=== PATIENT | female | born 1955 | race Caucasian/White ===

== ENCOUNTER 2021-03-02 15:55 | Emergency (ER) | payer OTHER, SELFPAY ==
[2021-03-02 16:12] VITALS: BP 125/68; PULSE 90; RESP 16; TEMP 36.6; O2SAT 94
--- NOTE | 2021-03-02 16:33 | ED.SKABFB ---
HPI - Skin/Abscess/Foreign Bdy General Chief complaint: Skin/Abscess/Foreign Body Stated complaint: Boil under Right Arm Time Seen by Provider: 03/02/21 16:33 Source: patient, family and RN notes reviewed Mode of arrival: ambulatory Limitations: no limitations History of Present Illness HPI narrative: 65 year-old patient arrives ambulatory with with c/o Abscess in right axilla. patient states that two weeks ago she waxed her armpits. The next day she work up with a quarter size lump that was swollen and warm to touch.. States she had yellow thick drainage from area. Patient states she has washed with soap and water daily.. She states drainage is now clear only when she presses area. Denies fever, chills, or any other issues. States this happens 8 times per year in same spot. MD complaint: abscess/boil Related Data Home Medications Medication Instructions Recorded Confirmed diazepam 2 mg PO QID PRN 03/02/21 03/02/21 lansoprazole 30 mg PO DAILY 03/02/21 03/02/21 latanoprost 1 drp EACH EYE HS 03/02/21 03/02/21 methocarbamol 500 mg PO TID PRN 03/02/21 03/02/21 morphine 30 mg PO TID 03/02/21 03/02/21 omeprazole [Prilosec] 40 mg PO DAILY 03/02/21 03/02/21 propranolol 10 mg PO BID 03/02/21 03/02/21 spironolactone 25 mg PO DAILY 03/02/21 03/02/21 tamsulosin 0.4 mg PO HS 03/02/21 03/02/21 Allergies Allergy/AdvReac Type Severity Reaction Status Date / Time amoxicillin AdvReac Intermediate Nausea and Verified 03/02/21 16:43 Vomiting Sulfa (Sulfonamide AdvReac Intermediate Nausea and Verified 03/02/21 16:43 Antibiotics) Vomiting Review of Systems Review of Systems: CONSTITUTIONAL: Denies body aches, fever, chills, or sweats. EYES: Denies visual changes, redness, or discharge. ENT: Denies rhinorrhea, congestion, sore throat, or otalgia. CARDIOVASCULAR: Denies chest pain, palpitations, or edema. RESPIRATORY: Denies cough or dyspnea. GASTROINTESTINAL: Denies abdominal pain, nausea, vomiting, or diarrhea. GENITOURINARY: Denies dysuria or hematuria. SKIN: Denies rash or itching. + Boil under arm pit MUSCULOSKELETAL: Denies back pain, joint pain, or myalgia. NEUROLOGIC: Denies headache, numbness, tingling, or weakness. PSYCH: Denies depression or anxiety. All systems reviewed & are unremarkable except as noted in HPI and below PMFSH Comments At time of signature, I have reviewed and agree with nursing past medical, surgical, social and family history unless otherwise noted. Please see nursing chart for further information. There is no relevant family history pertinent to the presenting complaint Exam Narrative: GENERAL: Well-appearing, well-nourished, and in no acute distress. HEAD: Normocephalic, atraumatic. EYES: EOMI. No redness or drainage. Conjunctivae normal. ENT: Mucous membranes pink and moist. Nares clear. No rhinorrhea. TMs normal bilaterally. Throat normal. Uvula midline. NECK: Normal AROM. Supple. No lymphadenopathy. CHEST: No respiratory distress. Clear to auscultation. HEART: Regular rate and rhythm. No murmur appreciated. Normal peripheral pulses. ABDOMEN: Soft, nontender, nondistended, normal active bowel sounds. MUSCULOSKELETAL: No bony tenderness. EXTREMITIES: Normal range of motion. No edema. SKIN: Warm, dry, no rash. Capillary refill normal. Normal skin turgor. Right axilla pea sized firm area, non-fluctuant, no erythema, no drainage. NEURO: No focal deficits. Alert and oriented x3. Gait steady. PSYCH: Normal affect. No signs of depression or anxiety. Course Vital Signs Vital signs: Vital Signs Temperature 36.6 C 03/02/21 16:12 Pulse Rate 90 03/02/21 16:12 Respiratory Rate 16 03/02/21 16:12 Blood Pressure 125/68 03/02/21 16:12 Pulse Oximetry 94 03/02/21 16:12 Temperature 36.6 C 03/02/21 16:12 Pulse Rate 90 03/02/21 16:12 Respiratory Rate 16 03/02/21 16:12 Blood Pressure 125/68 03/02/21 16:12 Pulse Oximetry 94 03/02/21 16:12 Re
== END 2021-03-02 17:03 | disposition home or self-care (01) ==
PROVIDERS: Emergency Provider Nurse Practitioner Family; PCP Internal Medicine
DX: L02.411 Cutaneous abscess of right axilla (principal); M41.9 Scoliosis, unspecified; Z86.19 Personal history of other infectious and parasitic diseases
CPT/HCPCS: 99211; G0463

== ENCOUNTER 2024-04-20 11:50 | Outpatient (CLI) | payer OTHER, SELFPAY ==
--- NOTE | ~2024-04-20 | MR_ITS ---
MR breast BI wo/w con 04/21/2024 08:07 [facility] INDICATION: Left nipple discharge. Left breast mass. TECHNIQUE: MRI of the breasts perform using standard protocol pre-and post IV contrast with the follo wing sequences: Axial T2 STIR, axial T1, axial vibrant T1 with fat suppression precontrast and multip hasic postcontrast. 13 cc MultiHance administered intravenously. COMPARISON: Ultrasound and mammogram dated 02/12/2024 and mammogram dated 11/13/2021 FINDINGS: There are no abnormalities on the precontrast sequences. There is moderate nodular backgrou nd parenchymal enhancement. No enhancing lesions following contrast administration. No areas of enh ancement meeting threshold criteria on CAD analysis. No evidence of signal abnormalities in the axil flory or internal mammary node distributions. LEFT BREAST: No signal abnormalities on precontrast sequences. There is moderate nodular background parenchymal enhancement. No enhancing lesions following contrast administration. No areas of enhan cement meeting threshold criteria on CAD analysis. No evidence of signal abnormalities in the axill adrien or internal mammary node distributions.] IMPRESSION: 1: Moderate nodular bilateral background enhancement limits evaluation for subtle mass. No discrete s uspicious masses or lymphadenopathy are identified to suggest malignancy. Recommend second look bilat eral complete breast ultrasound. BI-RADS CATEGORY 0 - INCOMPLETE STUDY, NEED ADDITIONAL IMAGING EVALUATION. Reviewed, dictated and finalized at location B. [facility] IMPRESSION: 1: Moderate nodular bilateral background enhancement limits evaluation for subt le mass. No discrete suspicious masses or lymphadenopathy are identified to sug gest malignancy. Recommend second look bilateral complete breast ultrasound. BI-RADS CATEGORY 0 - INCOMPLETE STUDY, NEED ADDITIONAL IMAGING EVALUATION.
== END 2024-04-20 11:51 | disposition home or self-care (01) ==
PROVIDERS: PCP Internal Medicine; Visit Provider Internal Medicine Medical Oncology
DX: N60.19 Diffuse cystic mastopathy of unspecified breast (principal); R92.30 Dense breasts, unspecified; N64.52 Nipple discharge; N63.20 Unspecified lump in the left breast, unspecified quadrant
CPT/HCPCS: 77049; A9577; C8908

== ENCOUNTER 2024-05-15 08:58 | Outpatient (CLI) | payer OTHER, SELFPAY ==
--- NOTE | ~2024-05-15 | US_ITS ---
US breast BI complete 05/15/2024 09:56 Indication: Fibrocystic breast disease Procedure: High-resolution complete bilateral breast ultrasound including all 4 quadrants in the suba reolar locations Comparison: Comparison to multiple prior studies sequentially, with oldest reviewed study dated 11/13. Findings: Right breast: In the subareolar location of the right breast there is an oval hypoechoic mass with pa rallel orientation, circumscribed margins, no posterior features and no internal vascularity measurin g 7 x 3 x 4 mm. No other masses are identified. Left breast: There are multiple cysts of the left breast. At 3:00, 6 cm from the nipple there is an o jag parallel oriented circumscribed hypoechoic mass measuring 6 mm. There are subtle posterior acoust ic enhancement. No internal vascularity. At 4:00 near the nipple there is antiparallel hypoechoic mas s with slightly irregular margins measuring 5 mm maximum dimension Impression: 1: Irregular shaped antiparallel configuration. Mass of the left breast near the nipple measuring 5 m m. Ultrasound-guided left breast biopsy recommended. 2: Oval hypoechoic left breast mass at 3:00, 6 cm from the nipple measuring 6 mm, likely benign. Six- month follow-up left breast ultrasound recommended. BI-RADS CATEGORY 4-SUSPICIOUS ABNORMALITY Reviewed, dictated and finalized at location B. [employer] C[employer] Impression: 1: Irregular shaped antiparallel configuration. Mass of the left breast near th e nipple measuring 5 mm. Ultrasound-guided left breast biopsy recommended. 2: Oval hypoechoic left breast mass at 3:00, 6 cm from the nipple measuring 6 m m, likely benign. Six-month follow-up left breast ultrasound recommended. BI-RADS CATEGORY 4-SUSPICIOUS ABNORMALITY
== END 2024-05-15 08:59 | disposition home or self-care (01) ==
PROVIDERS: PCP Internal Medicine; Visit Provider Internal Medicine Medical Oncology
DX: R92.8 Other abnormal and inconclusive findings on diagnostic imaging of breast (principal); N60.11 Diffuse cystic mastopathy of right breast
CPT/HCPCS: 76641

== ENCOUNTER 2024-09-07 07:22 | Outpatient (CLI) | payer OTHER, SELFPAY ==
--- NOTE | ~2024-09-07 | MMUS_ITS ---
EXAMINATION: MM post biopsy diagnostic LT, US breast biopsy LT w image EXAMINATION: US GUIDED NEEDLE BIOPSY WITH VACUUM ASSISTANCE DATE: 09/07/2024 10:17 CDT INDICATION: Left breast mass seen on prior examination. Ultrasound-guided core biopsy is requested t o evaluate for malignancy. BREAST PARENCHYMAL COMPOSITION: Dense: The breasts are heterogeneously dense, which may obscure small masses TECHNIQUE AND FINDINGS: The risks and potential benefits of the procedure were discussed with the patient, and written inform ed consent was obtained. After sterile preparation of the left breast, 1% lidocaine was utilized for local anesthesia. 1% lidocaine with epinephrine was used for deep anesthesia. A 10G vacuum-assisted biopsy gun needle was advanced through to the outer edge of the region of inter est from a inferior approach utilizing sonographic guidance. A total of three tissue core samples we re obtained through the lesion. The lesion of interest resolved following biopsy. No residual mass is identified. An Inrad tissue marker clip was then placed at the biopsy site. Hemostasis was achieved. The patient tolerated procedure well and there was no evidence of immediate complication. The patien t was given verbal instructions partly is from the department. Left breast mammograms to document ti ssue marker clip placement. The tissue samples were submitted to surgical pathology for histologic an alysis. IMPRESSION: 1. Successful ultrasound-guided vacuum-assisted biopsy of left breast mass with complete resolution of the mass postprocedure with post procedure mammogram for marker placement. Please refer to patholo gy report for histologic analysis. Reviewed, dictated and finalized at location B. IMPRESSION: 1. Successful ultrasound-guided vacuum-assisted biopsy of left breast mass wit h complete resolution of the mass postprocedure with post procedure mammogram f or marker placement. Please refer to pathology report for histologic analysis.
--- OUTSIDE RECORDS SUMMARY | 2024-09-07 07:29 | XMS_ITS | Clinical Summary ---
[facility] Address [address] [facility] Attn: Epic Prelude ADT TIMMY CARSON [id number] Care Team Providers Care Photoengraver Apprentice Name Role Phone Ervin Sherman MD Primary Care Provider [phone] Allergies Active Allergy Reactions Criticality Noted Date Comments Adhesive Tape Other (See Comments) 02/16/2009 Medications multivitamin (DAILY-FERCHO) Oral Tab Take 1 Tab by mouth daily. Active CALCIUM CARBONATE/VITAMIN D3 (CALCIUM 600 + D PO) Take by mouth. Activ e VITAMIN E PO Take 400 Int'l Units by mouth. Active cholecalciferol, vitamin D3, 5,000 unitIndications:Fi brocystic breast changes,Other malaise and fatigue Take by mouth 2 times daily. Active LACTOBACILLUS RHAMNOSUS GG (PROBIOTIC ORAL)Indications:F ibrocystic breast changes Take by mouth daily. Active EVENING PRIMROSE OIL ORAL Take by mouth. Activ e diazepam (VALIUM) 5 mg tablet Take 5 mg by mouth every 6 hours as needed for Anxiety (at bedtime). PT TAKES 2MG TID Active diphenhydrAMINE (BENADRYL) 25 mg tablet Take 25 mg by mouth every 6 hours as needed for Allergies. Active lysine 500 mg tablet Take 500 mg by mouth daily. Active Aspirin, Buffered 81 mg Tablet Take by mouth. Ac tive propranolol (INDERAL) 20 mg tabletIndications: half tabs Take 20 mg by mouth daily . Active latanoprost (XALATAN) 0.005 % solution Administer 1 Drop in both eyes daily at bedtime. 7.5 mL 4 08/29/2018 11:51 AM CDT 8 Active tamsulosin (FLOMAX) 0.4 mg capsule Take 0.4 mg by mouth daily. Active spironolactone (ALDACTONE) 25 mg tablet Take 25 mg by mouth daily. prn Active magnesium oxide 250 mg Tablet Take by mouth. A ctive morphine (MS IR) 30 mg tabletIndications: Other intervertebral disc degeneration, lumbosacral region Take 0.5-1 Tablets (15-30 mg) by mouth every 6 hours as needed for pain. Maximum 2.5 tablets daily. 75 Tablet 11/02/2019 11:53 AM CDT 0 Active methocarbamoL (ROBAXIN) 500 mg tablet Take 500 mg by mouth 4 times daily. 1/2 AT BREAKFAST, LUNCH AND 1 1/2 AT 9 PM Active loperamide HCl (ANTI-DIARRHEA ORAL) Take by mouth. Activ e esomeprazole (NexIUM) 20 mg Capsule, Delayed Release(E.C.) Take 20 mg by mouth daily before breakfast. Active Prolia 60 mg/mL Syringe 3 Active pantoprazole (PROTONIX) 40 mg Tablet, Delayed Release (E.C.) Take 1 Tablet by mouth daily. 4 Active prochlorperazine maleate (COMPAZINE) 10 mg tablet Take 1 Tablet by mouth 3 times daily. 4 Active furosemide (LASIX) 10 mg/mL Solution Take by mouth two times daily, 7 hours apart. Prn Active Active Problems Patient Care Coordination No te Formatting of this note migh t be different from the original. Primary Care: Ervin Sherman MD [place]: [place] [id number] [place] [address] Other: Problem Noted Date Diagnosed Date Tobacco use 03/10/2015 Dysphagia 08/13/2013 Overview (08/13/2013): Both solids and liquids; to have upper endoscopy 4-13 Anxiety disorder in conditions classified elsewh ere 08/13/2013 Arthritis 08/13/2013 Migraine 08/13/2013 Fibrocystic breast changes 12/29/2009 Overview (12/29/2009): Diffusely painful breasts Multiple biopsies,all benign Encounters Date Type Department Care Team Description 08/13/2024 Orders Only [facility]-[address] [phone] Jo-Ann Rodriguez MD Abnormal mammogram of left breast (Primary Dx); Abnormal ultrasound of breast; Mass of left breast, unspecified quadrant 08/12/2024 External Device Data [facility] ABSTRACTION Provider, Abstract 08/01/2024 External Device Data [facility] Provider, Abstract 07/31/2024 External Device Data [facility] Provider, Abstract 07/29/2024 External Device Data [facility] Provider, Abstract 07/29/2024 External Device Data [facility] Provider, Abstract 07/15/2024 External Device Data [facility]STRACTION Provider, Abstract 07/09/2024 Abstract [facility]-[address] [phone] Jo-Ann Rodriguez MD 07/02/2024 Abstract [facility]-[address] [id number] Jo-Ann Rodriguez MD 06/18/2024 External Device Data [facility] ABSTRACTION Provider, Abstract 06/16/2024 Orders Only [address] [id number] Jo-Ann Rodriguez MD Abnormal ultrasound of breast (Primary Dx); Abnormal mammogram of left breast 06/15/2024 Abstract [facility]-[address] [phone] Jo-Ann Rodriguez MD from Last 3 Months Family History Medical History Relation Name Comments Cancer Father throat cancer Breast Cancer Neg Hx Ovarian Cancer Neg Hx Uterine Cancer Neg Hx Relation Name Status Comments Father Social History Tobacco Use Types Packs/Day Years Used Date Smoking Tobacco: Every Day Smokeless Tobacco: Never Tobacco Cessation:Ready to Q uit: Not Asked; Counseling Given: Not Answered Alcohol Use Standard Drinks/Week Comments Not Asked 0 (1 standard drink = 0.6 oz pur e alcohol) Comments No Sex and Gender Information Value Date Recorded Sex Assigned at Not on file Legal Sex Female 4:40 AM [employer]AL WORK[employer] Gender Identity Not on file Sexual Orientation Not on file Last Filed Vital Signs Vital Sign Reading Time Taken Comments Blood Pressure 120/62 03/03/2024 11:05 AM CDT Pulse 86 03/03/2024 11:05 AM CDT Temperature 36.3 C (97.3 F) 03/03/2024 11:05 AM CDT Respiratory Rate 16 03/03/2024 11:05 AM CDT Oxygen Saturation 96% 03/03/2024 11:05 AM CDT Inhaled Oxygen Concentration - - Weight 62.6 kg (138 lb) 03/03/2024 11:05 AM CDT Height 152.4 cm (5') 03/03/2024 11:05 AM CDT Body Mass Index 26.95 03/03/2024 11:05 AM CDT Plan of Treatment Health Maintenance Due Date Last Done Comments Pre-Diabetes and Diabetes Screening 1955 DTAP/TDAP/TD VACCINES (1 - Tdap) 1974 PNEUMOCOCCAL VACCINE 50+ YEA RS (1 of 2 - PCV) 1974 COLORECTAL SCREENING 2000 Colorectal Cancer Screening 2000 FIT-DNA Q 3 years 2000 FIT/FOBT Q 1 year 2000 Flex Sig/CT Colonography Q 5 years 2000 ZOSTER VACCINE (1 of 2) 2005 COVID-19 Vaccine (2023-2 5 season) 2024 10/21/2020, 09/30/2020 Medicare Advantage (PR) Preventative Visit/Annual Wellness Visit 05/27/2024 04/03/2024, 05/28/2002 BREAST CANCER SCREENING 02/11/2025 02/12/20 24, 12/28/2022, 12/28/2022, Additional history exists RSV VACCINE (60+ or ) (1 - 1-dose 75+ series) 2030 OSTEOPOROSIS SCREENING Completed 4, 02/12/2024, 02/12/2024, Additional history exists INFLUENZA VACCINE Completed 04/03/2024 Procedures Procedure Name Priority Date/Time Associated Diagnosis Comments XR DEXA BONE DENSITY AXIAL 1 OR MORE SITES Routine 02/12/2024 Osteoporosis, unspecified osteoporosis type, unspecified pathological fracture presence HM MAMMOGRAPHY Routine 12/28/2022 11:09 AM CDT from Last 3 Months or Most Recently Relevant to Health Maintenance Results * XR DEXA BONE DENSITY AXIAL 1 OR MORE SITES (02/12/2024) T-SCORE FEMUR CLASS A [facility] T-SCORE FEMUR (LEFT) EXTERNAL RADIOLOGY T-SCORE FEMUR (RIGHT) EXTERNAL RADIOLOGY T-SCORE FEMUR NECK EXTERNAL RADIOLOGY T-SCORE FEMORAL NECK (LEFT) EXTERNAL RADIOLOGY T-SCORE FEMORAL NECK (RIGHT) EXTERNAL RADIOLOGY T-SCORE HEEL EXTERNA L RADIOLOGY T-SCORE HEEL (LEFT) EXTERNAL RADIOLOGY T-SCORE HEEL (RIGHT) EXTERNAL RADIOLOGY T-SCORE HIP EXTERNAL RADIOLOGY T-SCORE HIP (LEFT) EXTERNAL RADIOLOGY T-SCORE HIP (RIGHT) EXTERNAL RADIOLOGY T-SCORE WRIST CLASS A [facility] T-SCORE WRIST (LEFT) EXTERNAL RADIOLOGY T-SCORE WRIST (RIGHT) EXTERNAL RADIOLOGY T-SCORE SPINE CLASS A [facility] Anatomical Region Laterality Modality Other us Jo-Ann Rodriguez MD DIAGNOSTIC IMAGING ORDERABLES Edited Result - Final * MAMMOGRAPHY (12/28/2022 11:09 AM CDT) us Joanie Schwartz MD HEALTH MAINTENANCE Final Result [facility] #[id number] [address] [place] [address], from Last 3 Months or Most Recently Relevant to Health Maintenance Insurance [facility] [place] Address: [address] [address] RX MEDIMPACT Member Subscriber Plan / Payer (Ef fective for All Dates) Name:Khadijah Taylor Coby Relation to Subscriber:Self Name:Khadijah Taylor Coby Payer ID:Not on file Group ID:[id number] Type:RX Medicare Part D Address: [facility] Member Subscriber Plan / Payer (Ef fective 2008-Present) Name:ClaudiaKhadijah Relation to Subscriber:Self Name:Claudia Khadijah Tenorio Payer ID:[id number] (NAIC) Type:[employer] Address: [facility] [address] [place] [id number] Care Teams Photoengraver Apprentice Relationship Specialty [place] [address] [place] [address] PCP - General Internal Medicine 07/06/10
--- OUTSIDE RECORDS SUMMARY | 2024-09-07 07:29 | XMS_ITS | Referral Summary ---
Author Organization [facility] Address [address] [place] [address] Care Team Providers Care Art Glass Setter Name Role Phone Ervin Sherman MD Primary Care Provider [phone] Encounters Date Type Department Care Team Description 07/07/2024 6:01 PM DANCE CHOREOGRAPHER - 07/07/2024 11:59 PM DANCE CHOREOGRAPHER Hospital Encounter [facility] [address] [place] [address] Abnormal mammography Discharge Disposition: Discharge to home or self care from Last 3 Months Allergies Active Allergy Reactions Criticality Noted Date Comments Adhesive Tape-Silicones Immunizations Immunization Administration Dates Next Due Pfizer SARS-CoV-2 Monovalent Vaccination (12+ Yrs) PURPLE 10/21/2020,09/30/2020 Social History Tobacco Use Types Packs/Day Years Used Date Smoking Tobacco: Every Day Cigarettes Smokeless Tobacco: Never Alcohol Use Standard Drinks/Week Comments No 0 (1 standard drink = 0.6 oz pur e alcohol) Comments No Sex and Gender Information Value Date Recorded Sex Assigned at Not on file Legal Sex Female 1:59 AM DANCE CHOREOGRAPHER Gender Identity Not on file Sexual Orientation Not on file Last Filed Vital Signs Vital Sign Reading Time Taken Comments Blood Pressure 120/77 01/17/2018 8:47 PM CDT Pulse 109 01/17/2018 8:47 PM CDT Temperature 37.1 C (98.8 F) 01/17/2018 8:47 PM CDT Respiratory Rate 20 01/17/2018 8:47 PM CDT Oxygen Saturation 98% 01/17/2018 8:47 PM CDT Inhaled Oxygen Concentration - - Weight 60.3 kg (133 lb) 01/17/2018 8:47 PM CDT Height 152.4 cm (5') 02/12/2024 1:10 PM CDT Body Mass Index 25.97 01/17/2018 8:47 PM CDT Plan of Treatment Not on file Procedures Procedure Name Priority Date/Time Associated Diagnosis Comments BREAST IMAGING MG DIAGNOSTIC OUTSIDE CONSULT Routine 07/07/2024 6:01 PM DANCE CHOREOGRAPHER Abnormal mammography DIAGNOSTIC MAMMOGRAM BILATERAL W PHILLIP Schedule Routine, Read Routine (OP Routine) 02/12/2024 1:30 PM CDT Fibrocystic change of breast, unspecified laterality Nipple discharge DEXA AXIAL SKELETON BONE DENSITY 1 OR MORE SITES Schedule Routine, Read Routine (OP Routine) 02/12/2024 1:00 PM CDT Osteoporosis, postmenopausal from Last 3 Months or Most Recently Relevant to Health Maintenance Results * Breast Imaging DX Outside Consult (07/07/2024 6:01 PM DANCE CHOREOGRAPHER) Anatomical Region Laterality Modality Breast N/A Mammography 07/08/2024 11:1 2 AM DANCE CHOREOGRAPHER Impressions 07/08/2024 2:21 PM DANCE CHOREOGRAPHER 1. No MRI evidence of malignancy or explanation for the patient's left nipple discharge. 2. Subsequent facility ultrasound reportedly showed masses in the left breast at the 4:00 retroareolar location as well as at the 3 o'clock position 6 cm from the nipple. Further evaluation with repeat left breast ultrasound is recommended. OVERALL FINAL ASSESSMENT: BI-RADS Category 0: Incomplete - Need Additional Imaging Evaluation. RECOMMENDATION: Additional imaging - ultrasound evaluation of the left breast. NOTE: The findings, conclusions and recommendations within this report do not replace the initial findings, conclusions and recommendations made at the facility where the study was performed based upon the imaging and clinical condition at that time. Review of the prior report and correlation with the clinical history are necessary. The provided images may or may not represent the modoc source data set and thus may contain changes which may lower the sensitivity of the second opinion interpretation. Dictated by: John Ho MD The radiology attending physician has personally reviewed this study, and had reviewed and/or edited this written report and agrees with it. Electronically signed by: Nataliya Ortega M.D. Narrative 07/08/2024 2:21 PM DANCE CHOREOGRAPHER EXAMINATION: REVIEW AND INTERPRETATION OF OUTSIDE IMAGING FACILITY PERFORMING OUTSIDE IMAGING: [facility]. EXAM(S) REVIEWED: 1. BILATERAL BREAST MRI WITH AND WITHOUT INTRAVENOUS CONTRAST, 04/20/2024 DATE OF INTERPRETATION: 07/08/2024 HISTORY: 69-year-old woman with clear left nipple discharge. She has a history of fibrocystic breast disease. COMPARISON: Mammogram 01/17/2023, mammogram 02/12/2024 BREAST PARENCHYMAL COMPOSITION: There are scattered areas of fibroglandular density. FINDINGS: Mildly limited evaluation of the MRI due to difference in protocols. There is scattered fibroglandular tissue and mild background parenchymal enhancement. There are postsurgical changes in both breasts. There is no suspicious enhancing mass or non-mass enhancement noted within either breast. Imaged axilla shows no evidence of lymphadenopathy. Reportedly ultrasound was recommended and showed a mass in the left breast at the 4 o'clock position near the nipple for which ultrasound-guided biopsy is recommended as well as an oval hypoechoic mass in the left breast for which six-month follow-up was recommended. Procedure Note Nataliya Ortega MD - 07/08/2024 EXAMINATION: REVIEW AND INTERPRETATION OF OUTSIDE IMAGING FACILITY PERFORMING OUTSIDE IMAGING: [facility]. EXAM(S) REVIEWED: 1. BILATERAL BREAST MRI WITH AND WITHOUT INTRAVENOUS CONTRAST, 04/20/2024 DATE OF INTERPRETATION: 07/08/2024 HISTORY: 69-year-old woman with clear left nipple discharge. She has a history of fibrocystic breast disease. COMPARISON: Mammogram 01/17/2023, mammogram 02/12/2024 BREAST PARENCHYMAL COMPOSITION: There are scattered areas of fibroglandular density. FINDINGS: Mildly limited evaluation of the MRI due to difference in protocols. There is scattered fibroglandular tissue and mild background parenchymal enhancement. There are postsurgical changes in both breasts. There is no suspicious enhancing mass or non-mass enhancement noted within either breast. Imaged axilla shows no evidence of lymphadenopathy. Reportedly ultrasound was recommended and showed a mass in the left breast at the 4 o'clock position near the nipple for which ultrasound-guided biopsy is recommended as well as an oval hypoechoic mass in the left breast for which six-month follow-up was recommended. IMPRESSION: 1. No MRI evidence of malignancy or explanation for the patient's left nipple discharge. 2. Subsequent facility ultrasound reportedly showed masses in the left breast at the 4:00 retroareolar location as well as at the 3 o'clock position 6 cm from the nipple. Further evaluation with repeat left breast ultrasound is recommended. OVERALL FINAL ASSESSMENT: BI-RADS Category 0: Incomplete - Need Additional Imaging Evaluation. RECOMMENDATION: Additional imaging - ultrasound evaluation of the left breast. NOTE: The findings, conclusions and recommendations within this report do not replace the initial findings, conclusions and recommendations made at the facility where the study was performed based upon the imaging and clinical condition at that time. Review of the prior report and correlation with the clinical history are necessary. The provided images may or may not represent the modoc source data set and thus may contain changes which may lower the sensitivity of the second opinion interpretation. Dictated by: John Ho MD The radiology attending physician has personally reviewed this study, and had reviewed and/or edited this written report and agrees with it. Electronically signed by: Nataliya Ortega M.D. Roman Rodriguez MD IMG MAMMO PROCEDURES Final Re sult * (ABNORMAL) Diagnostic Mammogram Bilateral W Phillip (02/12/2024 1:30 PM CDT) Anatomical Region Laterality Modality Breast Bilateral Mammography 02/12/2024 2:09 PM CDT Impressions 02/12/2024 2:09 PM CDT 1. No findings are identified on mammogram or sonogram to account for patient's clear left nipple discharge. Clear nipple discharge is considered pathologic, and further evaluation with breast MRI is recommended. 2. No new suspicious findings identified in either breast on mammogram. BI-RADS: 0 - Additional imaging evaluation is necessary. I discussed the findings and recommendations with the patient at time of the examination. Electronically signed by: SHAYNA Enrique 02/12/2024 2:09 PM CDT EXAMINATION: DIAGNOSTIC MAMMOGRAM BILATERAL W PHILLIP, US BREAST LEFT LIMITED ORDERING HEALTHCARE PROVIDER: ROMAN RODRIGUEZ HISTORY: 68-year-old woman comes in today for evaluation of clear left nipple discharge, and screening of the right breast. COMPARISON: 12/28/2022, 11/13/2021, 11/10/2020, 05/13/2019. TECHNIQUE: CC and MLO views of both breasts were obtained with digital technique using digital breast tomosynthesis with C view. Computer aided detection was utilized. Targeted sonographic examination of the left breast was performed real-time grayscale images and color Doppler. FINDINGS: MAMMOGRAPHIC FINDINGS: There are scattered areas of fibroglandular density. Stable benign postoperative changes are identified in both breasts. There are also multiple benign round and oval low-density masses with circumscribed margins in both breasts. These have not suspiciously changed in greater than 2 years, consistent with benignity. There are no new suspicious findings in either breast on mammogram. SONOGRAPHIC FINDINGS: Targeted sonographic examination of the subareolar left breast demonstrates multiple benign cysts, but no suspicious solid masses or abnormally dilated ducts are identified. us Roman Rodriguez MD IMG MAMMO PROCEDURES Final Re sult * Dexa Axial Skeleton Bone Density 1 or 2 Site (02/12/2024 1:00 PM CDT) Anatomical Region Laterality Modality Body N/A Other 02/12/2024 4:47 PM CDT Narrative 02/12/2024 4:48 PM CDT EXAM DESCRIPTION: DEXA AXIAL SKELETON BONE DENSITY 1 OR MORE SITES REASON FOR STUDY: 68 y/o year old F with given history of: Screening Postmenopausal Shop And Alteration Tailor/Model: BCNX SL (S/N [id number]) CLINICAL INFORMATION: Current height: 60 inches Maximum height: 16 inches Weight: 133 pounds Risk factors: Postmenopausal, smoking history, rheumatoid arthritis, secondary osteoporosis, cancer COMPARISON: 12/26/2021 FINDINGS: AP LUMBAR SPINE L1-L4: Total BMD is 1.012 g/cm2 T-score is -0.3 This is increased in comparison to prior exam which is statistically significant. LEFT HIP: Total BMD is 0.792 g/cm2 T-score is -1.2 This is increased in comparison to prior exam which is statistically significant. Femoral neck BMD is 0.568 g/cm2 T-score is -2.5 FRAX: FRAX not reported due to T-scores of hip, femoral neck and/or spine being at or below -2.5 (Osteoporosis). IMPRESSION: Osteoporosis. REFERENCE: Bone mineral density: T-Score: Normal (T-score above or = -1.0) Low bone mass (T-score between -1.0 and -2.5) replaces the previously used term osteopenia Osteoporosis (T-score = or below -2.5) Z-Score: Within the expected range for age (Z-score above -2.0) Below the expected range for age (Z-score is -2.0 or below) Please see below follow up recommendations. Medical evaluation for secondary causes of low bone mineral density may be appropriate. FRAX is a World Health Organization validated fracture risk assessment tool that calculates a person's 10 year probability of a major osteoporosis related fracture and hip fracture. According to the National Osteoporosis Foundation guidelines, postmenopausal women and men age 50 or older with low bone mass and a 10 year probability of a major osteoporosis related fracture = or greater than 20% or a 10 year probability of a hip fracture = or greater than 3% should be considered for pharmacological treatment for the prevention of osteoporosis. For further information, including treatment recommendations, please refer to the 2019 ISCD Official Positions (http://www.iscd.org) and the NOF's Clinician's Guide to Prevention and Treatment of Osteoporosis (http://www.nof.org/professionals/clinical-guidelines) THIS IS AN ELECTRONICALLY VERIFIED FINAL REPORT 02/12/2024 4:48 PM - Electronically signed by Justin Dailey M.D. MF: [email or web address] Report ID: [id number] Reading Location: [id number] Procedure Note Justin Dailey MD - 02/12/2024 EXAM DESCRIPTION: DEXA AXIAL SKELETON BONE DENSITY 1 OR MORE SITES REASON FOR STUDY: 68 y/o year old F with given history of: Screening Postmenopausal Shop And Alteration Tailor/Model: Wally (S/N [id number]) CLINICAL INFORMATION: Current height: 60 inches Maximum height: 16 inches Weight: 133 pounds Risk factors: Postmenopausal, smoking history, rheumatoid arthritis, secondary osteoporosis, cancer COMPARISON: 12/26/2021 FINDINGS: AP LUMBAR SPINE L1-L4: Total BMD is 1.012 g/cm2 T-score is -0.3 This is increased in comparison to prior exam which is statistically significant. LEFT HIP: Total BMD is 0.792 g/cm2 T-score is -1.2 This is increased in comparison to prior exam which is statistically significant. Femoral neck BMD is 0.568 g/cm2 T-score is -2.5 FRAX: FRAX not reported due to T-scores of hip, femoral neck and/or spine beingat or below -2.5 (Osteoporosis). IMPRESSION: Osteoporosis. REFERENCE: Bone mineral density: T-Score: Normal (T-score above or = -1.0) Low bone mass (T-score between -1.0 and -2.5) replaces thepreviously used term osteopenia Osteoporosis (T-score = or below -2.5) Z-Score: Within the expected range for age (Z-score above -2.0) Below the expected range for age (Z-score is -2.0 or below) Please see below follow up recommendations. Medical evaluation forsecondary causes of low bone mineral density may be appropriate. FRAX is a World Health Organization validated fracture risk assessmenttool that calculates a person's 10 year probability of a major osteoporosisrelated fracture and hip fracture. According to the National OsteoporosisFoundation guidelines, postmenopausal women and men age 50 or older with low bonemass and a 10 year probability of a major osteoporosis related fracture = or greater than 20% or a 10 year probability of a hip fracture = or greaterthan 3% should be considered for pharmacological treatment for the preventionof osteoporosis. For further information, including treatment recommendations, please referto the 2019 ISCD Official Positions (http://www.iscd.org) and the NOF's Clinician's Guide to Prevention and Treatment of Osteoporosis (http://www.nof.org/professionals/clinical-guidelines) THIS IS AN ELECTRONICALLY VERIFIED FINAL REPORT 02/12/2024 4:48 PM - Electronically signed by Justin Dailey M.D. MF: [email or web address] Report ID: [id number] Reading Location: [id number] Roman Rodriguez MD IMG DXA PROCEDURES Final Resu lt from Last 3 Months or Most Recently Relevant to Health Maintenance Additional Health Concerns Infection Onset Date Last Indicated MDR gram neg/ESBL Comment:Backloaded March 15, 2011 01/26/2011 01/26/2011 Insurance HEALTHCARE HEALTHCARE HEALTHCARE Care Teams Art Glass Setter Relationship Specialty [place] [address] [address] PCP - General 01/31/12
--- OUTSIDE RECORDS SUMMARY | 2024-09-07 07:30 | XMS_ITS | Clinical Summary ---
Author Organization [facility] Address [address] [place] [address] Care Team Providers Care Nylon Operator Name Role Phone Ervin Sherman MD Primary Care Provider [phone] Source Comments [facility],non-owned Affiliates and Associated Physician Practices is amultiple site organization consisting of ambulatory clinics and hospital sitesin [place], [place], [place] and [place]. This disclosure is being madepursuant to the Care Everywhere program and may not contain all information available regarding this patient. Last updated 18.[facility] Allergies Active Allergy Reactions Criticality Noted Date Comments Adhesive Sensitivity 06/16/2009 Promethazine 01/06/2009 Reglan 01/06/2009 Vomiting and diarrhea Medications * Be aware that medications may not be up to date on this document. Alwaysverify current medications with the patient. DIAZEPAM PO Take by mouth. Active travoprost (TRAVATAN) 0.004 % ophthalmic solution Instill 1 Drop into both eyes. Active Other Fentonal patch Need dosage Active MSIR PO Take by mouth. Active doxepin (SINEQUAN) 25 MG capsule Take by mouth. Active dicyclomine (BENTYL) 10 MG capsule Take by mouth. Active CALCIUM + D PO Take by mouth. Active MULTI-VITAMIN PO Take by mouth. Active VITAMIN E PO Take by mouth. Active primidone (MYSOLINE) 50 MG tablet Take by mouth. 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 Gender Identity Not on file Sexual Orientation Not on file Last Filed Vital Signs Vital Sign Reading Time Taken Comments Blood Pressure 120/72 06/16/2009 1:11 PM STEM CLEANING MACHINE FEEDER Pulse - - Temperature - - Respiratory Rate - - Oxygen Saturation - - Inhaled Oxygen Concentration - - Weight 60.8 kg (134 lb) 06/16/2009 1:11 PM STEM CLEANING MACHINE FEEDER Height 152.4 cm (5') 06/16/2009 1:11 PM STEM CLEANING MACHINE FEEDER Body Mass Index 26.17 06/16/2009 1:11 PM STEM CLEANING MACHINE FEEDER Plan of Treatment Health Maintenance Due Date Last Done Comments COLOGUARD (AGES 45-75) - COLON CA SCREENING 1955 COLON MONITORING 1955 COLONOSCOPY - COLON CA SCREENING 1955 CT COLONOGRAPHY - COLON CA SCREENING 1955 Colorectal Cancer Screening 1955 FIT - COLON CA SCREENING 1955 FLEX SIG - COLON CA SCREENING 1955 LIPID TESTING 1955 HEPATITIS C SCREENING 03/04/1973 PNEUMOCOCCAL VACCINE 50+ (1 of 1 - PCV) 2005 ZOSTER VACCINE (1 of 2) 2005 DTAP/TDAP/TD VACCINES (2 - Td or Tdap) 05/27/2005 05/27/1995 MAMMOGRAM 02/22/2019 02/22/2017, 01/26, 12/31/2014, Additional history exists COVID-19 VACCINE ( - season) 2024 DEPRESSION SCREENING 05/27/2024 INFLUENZA VACCINE (Season Ended) 2025 Respiratory Syncytial Virus (RSV) Vaccine Pt: or over 60 yrs (1 - 1-dose 75+ series) 2030 BONE DENSITY TESTING Completed 02/21/2009 HEPATITIS B VACCINE Aged Out No longe r eligible based on patient's age to complete this topic HIB VACCINE Aged Out No longer eligi ble based on patient's age to complete this topic HPV VACCINE Aged Out No longer eligi ble based on patient's age to complete this topic MENINGOCOCCAL (Group B) VACCINE SHARED DECISION-MAKING Aged Out No longer eligible based on patient's age to complete this topic MENINGOCOCCAL GROUPS A/C/Y/W VACCINE Aged Out No longer eligible based on patient's age to complete this topic Procedures Procedure Name Priority Date/Time Associated Diagnosis Comments MAMMO BILAT DIAGNOSTIC Routine 02/22/2017 1:16 PM CDT Lump DEXA BONE DENSITY 2 SITES Routine 02/21/2009 11:34 AM CDT Special Screening for Osteoporosis from Last 3 Months or Most Recently Relevant to Health Maintenance Results * Mammogram Diagnostic Digital Bilateral (G0204) (02/22/2017 1:16 PM CDT) Anatomical Region Laterality Modality Bilateral Mammography 02/22/2017 1:20 PM CDT Narrative 02/22/2017 2:19 PM CDT FULL-FIELD DIGITAL MAMMOGRAPHY BILATERAL DIAGNOSTIC - WITH CAD CORRELATION AND 3-D TOMOSYNTHESIS DATE: 02/22/2017 12:47 PM PREVIOUS EXAM DATE: 02/20/2016, 12/31/2014, 12/18/2013 INDICATIONS: Left breast tenderness, left breast palpable lump TECHNIQUE: Bilateral breast CC and MLO views with 3-D Tomosynthesis,, these images were interpreted with the aid of CAD. TISSUE DENSITY: There are scattered areas of fibroglandular density FINDINGS: There is an ovoid 11 mm mass at approximately the 9:00 position of the right breast, approximately 4 cm from the nipple which has smooth, well-defined margins and has the mammographic appearance of a cyst. Ultrasound of this region was recommended and was performed at this institution this afternoon. In addition, at approximately the 8:00 to 9:00 position of the left breast, approximately 2 cm from the nipple, there is an ovoid well-defined smoothly marginated 11 mm mass which has the mammographic appearance of a cyst. Ultrasound of this region was recommended and was performed at this institution this afternoon. Bilateral breast ultrasound findings: Ultrasonographic assessment of the right breast, 9:00 position, approximately 3 to 4 cm from the nipple, reveals a 1.4 cm simple cyst. In the 12:00 position of the left breast, approximately 1 cm from the nipple, there is a 7 mm cyst which contains thick internal proteinaceous debris. Also in the 12:00 position of the left breast, approximately 1 cm from the nipple, there is a 1.6 cm gently lobulated cyst with single septation. These are considered benign findings. ASSESSMENT: BI-RADS 2: Benign finding(s) RECOMMENDATION: Continued annual screening mammography The above findings should be correlated with physical examination. A relatively nonspecific study should not preclude additional evaluation if suspicious findings are present clinically. An [employer] [place] [employer] certified facility. [facility] utilize [employer] as a reminder system to notify patients of their next recommended mammogram. Jo-Ann Rodriguez MD MAMMO ORDERABLES Final Result * DEXA BONE DENSITY 2 SITES (02/21/2009 11:34 AM CDT) Anatomical Region Laterality Modality Mammography 02/21/2009 1:42 PM CDT Impressions 02/21/2009 3:10 PM CDT The composite T-scores range from 0.2 in the lumbar spine to -1.5 in the hips. Using the lower value, patient meets WHO criteria for osteopenia and has an increased fracture risk as compared to the control population. WORLD HEALTH ORGANIZATION DEFINITIONS OSTEOPENIA = -1 to -2.5 SD BELOW T SCORE. OSTEOPOROSIS = Less than -2.5 SD BELOW T SCORE Narrative 02/21/2009 3:10 PM CDT BONE MINERAL DENSITY STUDY INDICATION: Ovarian failure. Post menopausal. Osteoporosis screening. FINDINGS: The average bone mineral density from L1 to L4 is 1.158 g/cm2. The T-score is -0.2 and the Z-score is 0.8. The average bone mineral density of the total hips is 0.822 g/cm2. The T-score is -1.5 and the Z-score is -0.7. Procedure Note Gilmer Delgado MD - 02/21/2009 BONE MINERAL DENSITY STUDY INDICATION: Ovarian failure. Post menopausal. Osteoporosis screening. FINDINGS: The average bone mineral density from L1 to L4 is 1.158 g/cm2. The T-score is -0.2 and the Z-score is 0.8. The average bone mineral density of the total hips is 0.822 g/cm2. The T-score is -1.5 and the Z-score is -0.7. IMPRESSION The composite T-scores range from 0.2 in the lumbar spine to -1.5 in the hips. Using the lower value, patient meets WHO criteria for osteopenia and has an increased fracture risk as compared to the control population. WORLD HEALTH ORGANIZATION DEFINITIONS OSTEOPENIA = -1 to -2.5 SD BELOW T SCORE. OSTEOPOROSIS = Less than -2.5 SD BELOW T SCORE Jo-Ann Rodriguez MD DEXA ORDERABLES Final Result from Last 3 Months or Most Recently Relevant to Health Maintenance Insurance MEDICARE Care Teams Nylon Operator Relationship Specialty [place] [id number] [id number] PCP - General 02/21/09
--- OUTSIDE RECORDS SUMMARY | 2024-09-07 07:30 | XMS_ITS | Encounter Summary ---
[facility] Organization [facility] Address 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
--- OUTSIDE RECORDS SUMMARY | 2024-09-07 07:30 | XMS_ITS | Encounter Summary ---
Author Organization [facility] Address 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
--- OUTSIDE RECORDS SUMMARY | 2024-09-07 07:30 | XMS_ITS | Clinical Summary ---
Author Organization [facility] Address [address] [place] [address] Care Team Providers Care Adult Protective Caseworker Name Role Phone Ervin Sherman MD Primary Care Provider [phone] Allergies Active Allergy Reactions Criticality Noted Date Comments Adhesive Tape-Silicones Encounters Date Type Department Care Team Description 07/07/2024 6:01 PM BREAD WRAPPING MACHINE FEEDER - 07/07/2024 11:59 PM BREAD WRAPPING MACHINE FEEDER Hospital Encounter [facility] ([facility]) [address] [place] [address] Abnormal mammography Discharge Disposition: Discharge to home or self care from Last 3 Months Immunizations Immunization Administration Dates Next Due Pfizer SARS-CoV-2 Monovalent Vaccination (12+ Yrs) PURPLE 10/21/2020,09/30/2020 Surgical History Surgery Date Site/Laterality Comments HYSTERECTOMY CHOLECYSTECTOMY TONSILLECTOMY/ADENOIDECTOMY BREAST SURGERY 05/27/1996 - 05/26/1997 Bilateral benign lumps removed COLON SURGERY large intestine removed BREAST LUMPECTOMY 05/27/1996 - 05/26/1997 Bilateral benign lumpectomies 1996 Medical History Medical History Date Comments Scoliosis Rheumatoid aortitis Family History Medical History Relation Name Comments Heart disease Father Heart disease; Breast cancer Neg Hx Relation Name Status Comments Father Social History Tobacco Use Types Packs/Day Years Used Date Smoking Tobacco: Every Day Cigarettes Smokeless Tobacco: Never Alcohol Use Standard Drinks/Week Comments No 0 (1 standard drink = 0.6 oz pur e alcohol) Comments No Sex and Gender Information Value Date Recorded Sex Assigned at Not on file Legal Sex Female 1:59 AM BREAD WRAPPING MACHINE FEEDER Gender Identity Not on file Sexual Orientation Not on file Obstetrics History Para Term AB IAB SAB Ectopic Multiple Livin g Live Births 2 2 2 Date Outcome GA Total Labor Labor/2nd/3rd Weight Sex Type Anes PTL Rosa Isela A1 A5 Name Clin Term Term Last Filed Vital Signs Vital Sign Reading [...] 01/17/2018 8:47 PM CDT Plan of Treatment Health Maintenance Due Date Last Done Comments Colon Cancer Screening-Colonoscopy 1955 Depression Screening 1955 Fall Risk Assessment 1955 Hepatitis C Screening 1955 DTaP/Tdap/Td Vaccine (1 - Tdap) 1966 Hepatitis B Screening 1973 Pneumococcal vaccine 65+ (1 of 2 - PCV) 1974 Zoster Vaccine (1 of 2) 2005 Well Visit 65+ 2020 Covid-19 Vaccine (3 - 2023-2 5 season) 2024 10/21/2020, 09/30/2020 Breast Cancer Screening-Mammogram 02/11/2025 02/12/2024, 12/28/2022, 11/13/2021, Additional history exists Osteoporosis Screening-Bone Density Scan 02/11/2026 02/12/2024, 02/12/2024, 02/12/2024, Additional history exists Influenza Vaccine Completed 04/03/2024, , 05/07/2012 Procedures Procedure Name Priority Date/Time Associated Diagnosis Comments BREAST IMAGING MG DIAGNOSTIC OUTSIDE CONSULT Routine 07/07/2024 6:01 PM BREAD WRAPPING MACHINE FEEDER Abnormal mammography DIAGNOSTIC MAMMOGRAM BILATERAL W PHILLIP [...] Imaging DX Outside Consult (07/07/2024 6:01 PM BREAD WRAPPING MACHINE FEEDER) Anatomical Region Laterality Modality Breast N/A Mammography 07/08/2024 11:1 2 AM BREAD WRAPPING MACHINE FEEDER Impressions 07/08/2024 2:21 PM BREAD WRAPPING MACHINE FEEDER 1. No MRI evidence of malignancy or [...] images may or may not represent the [employer] source data set and thus may contain changes which may lower the sensitivity of the second opinion interpretation. Dictated by: John Ho MD The radiology attending physician has personally reviewed this study, and had reviewed and/or edited this written report and agrees with it. Electronically signed by: Nataliya Ortega M.D. Narrative 07/08/2024 2:21 PM BREAD WRAPPING MACHINE FEEDER EXAMINATION: REVIEW AND INTERPRETATION OF OUTSIDE IMAGING FACILITY PERFORMING OUTSIDE IMAGING: [facility]. EXAM(S) REVIEWED: 1. BILATERAL BREAST MRI WITH [...] OF OUTSIDE IMAGING FACILITY PERFORMING OUTSIDE IMAGING: [facility]. EXAM(S) REVIEWED: 1. BILATERAL BREAST MRI WITH [...] images may or may not represent the [employer] source data set and thus may contain changes which may lower the sensitivity of the second opinion interpretation. Dictated by: John Ho MD The radiology attending physician has personally reviewed this study, and had reviewed and/or edited this written report and agrees with it. Electronically signed by: Nataliya Ortega M.D. us Jo-Ann Rodriguez MD IMG MAMMO PROCEDURES Final Re [...] of the examination. Electronically signed by: SHAYNA PIERRECHELE Enrique 02/12/2024 2:09 PM CDT EXAMINATION: DIAGNOSTIC MAMMOGRAM BILATERAL W PHILLIP, US BREAST LEFT LIMITED ORDERING HEALTHCARE PROVIDER: JO-ANN RODRIGUEZ HISTORY: 68-year-old woman comes in today [...] or abnormally dilated ducts are identified. 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
--- OUTSIDE RECORDS SUMMARY | 2024-09-07 07:30 | XMS_ITS | Encounter Summary ---
Author Organization [facility] Address 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
--- OUTSIDE RECORDS SUMMARY | 2024-09-07 07:30 | XMS_ITS | Encounter Summary ---
Author Organization [facility] Address 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
--- OUTSIDE RECORDS SUMMARY | 2024-09-07 07:30 | XMS_ITS | Encounter Summary ---
Author Organization [facility] Address [address] [place] [address] Care Team Providers Care Turf Keeper Name Role Phone Ervin Sherman MD Primary Care Provider [phone] Reason for Visit * Reason Onset Date Comments Scheduling Appointments 12/25/2021 Reminder call for DEXA. Encounter Details Date Type Department Care Team (Late st Contact Info) Description 12/25/2021 Telephone [facility] [address] [place] [id number] [address] Scheduling Appointments (Reminder call for DEXA. 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
== END 2024-09-07 07:23 | disposition home or self-care (01) ==
PROVIDERS: PCP Internal Medicine; Visit Provider Internal Medicine Medical Oncology
DX: R92.8 Other abnormal and inconclusive findings on diagnostic imaging of breast (principal); N60.02 Solitary cyst of left breast
CPT/HCPCS: 19083; 77065; 88305; A4648